=== PATIENT | male | born 1950 | race Caucasian/White ===

== ENCOUNTER 2024-01-09 10:42 | Outpatient (AMB) | payer OTHER, SELFPAY ==
--- NOTE | 2024-01-09 10:45 | A.OFFVIS_ITS ---
Intake Visit Reasons: nocturia Intake Note: New Patient presents for initial visit for nocturia and incomplete bladder emptying Urology Medications: none Blood Thinner: none PVR: 41ml's Truckload Checker Required: No Accompanied by: Self / Same As Patient Allergies No Known Allergies Allergy (Verified 01/09/24 11:34) Medication List - Last Reconciled 01/09/24 by SOFIA Castro atorvastatin 20 mg PO DAILY cyclobenzaprine 10 mg PO TID doxepin 6 mg PO BEDTIME mirabegron ER (Myrbetriq) 25 mg PO DAILY 30 days HPI Comments Details: Destin is a very pleasant 73-year-old male patient of Dr. Kendall. He has a past medical history of hyperlipidemia. He presents to the office today as a new patient for urge incontinence and lower urinary tract symptoms. In discussion with the patient today reports recently moving here from [place]. He reports approximately 1 and half years ago having had a TURP and had been doing well up until approximately 3-6 months ago when he started experiencing urinary urgency, urinary frequency, nocturia, and urge incontinence. He denies hematuria, dysuria, foul smelling urine, changes to urinary stream, flank pain, fever, and or chills. In office urinalysis results reviewed with the patient today. PVR 41 mL. We discussed at length potential causes of lower urinary tract symptoms patient is experiencing. We discussed bladder triggers/irritants as patient does report drinking approximately 3 cups of coffee a day. He discusses moving here from [place] to take care of his 2 grandchildren as his daughter is going to grad school. 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 We discussed possible near future in office cystoscopy and or urodynamics for further assessment evaluation. Will obtain retroperitoneal ultrasound and PSA for further assessment evaluation. He otherwise offers no other issues or concerns at this time. Review of Systems Const All systems reviewed & are unremarkable except as noted in HPI and below Physical Exam Const General: cooperative, healthy appearing, comfortable, no acute distress, well developed, alert and awake Orientation/consciousness: patient oriented x3 Limitations: no limitations HEENT Head: Yes normal to inspection, Yes normocephalic and Yes atraumatic Ears: hearing grossly normal bilaterally Eyes General: appearance normal, both eyes and all related structures Neck Neck: Yes normal visual inspection and Yes trachea midline Chest Chest palpation & inspection: normal inspection of the chest Resp Effort & Inspection: normal respiratory effort and able to speak in complete sentences Cardio Rate: regular rate GI Inspection: Yes normal to inspection General: Yes no CVA tenderness Back/Spine/Pelvis Back: no CVA tenderness Skin General skin exam: no rashes or lesions noted Neuro General: patient oriented x3 Extrem General: Yes normal to inspection Psych Appearance: grossly normal and well kempt Mental Status: mental status grossly normal Speech and movement: Normal speech and movement present and Clear speech present Affect: normal affect Attitude: cooperative Thought process: Normal thought process present Thought content: Normal thought content present Insight: Fair insight present (Psych) Judgement: Fair judgement present (Psych) Office Procedures Post Void Residual Post Residual Void Post Void Residual (PVR): 41 90718-Lmth Void Residual by ultrasound Results AMB Urinalysis, Automated UA Leukoctes 0 Rachael/uL Last Edit by [employer] on 01/09/24 11:05 UA Nitrite Last Edit by Jan Levy on 01/09/24 11:05 UA Urobilinogen 0.2 mg/dL Last Edit by LeviBAASBOXloki Levy on 01/09/24 11:05 UA Protein 0 mg/dL Last Edit by LeviBAASBOXloki Levy on 01/09/24 11:05 UA pH 5.5 Last Edit by LeviBAASBOXloki Levy on 01/09/24 11:05 UA Blood 0 Laci/uL Last Edit by Spotzerloki Levy on 01/09/24 11:05 UA Specific [place] 1.015 Last Edit by LeviBAASBOXloki Levy on 01/09/24 11:05 UA Ketone Last Edit by Spotzerloki Levy on 01/09/24 11:05 UA Bilirubin 0 mg/dL Last Edit by Jan Levy on 01/09/24 11:05 UA Glucose 0 mg/dL Last Edit by LeviBAASBOXloki Levy on 01/09/24 11:05 Results Reviewed Results Reviewed: Laboratory Last Values Urine pH (Auto) 5.5 01/09/24 11:04 Specific [place] (Auto) 1.015 01/09/24 11:04 Urine Protein (Auto) 0 mg/dL 01/09/24 11:04 Glucose (UA)(Auto) 0 mg/dL 01/09/24 11:04 Urine Blood (Auto) 0 Laci/uL 01/09/24 11:04 Urine Bilirubin (Auto) 0 mg/dL 01/09/24 11:04 Urine Urobilinogen (Auto) 0.2 mg/dL 01/09/24 11:04 Leukocyte Esterase (Auto) 0 Rachael/uL 01/09/24 11:04 Assessment & Plan Assessment & Plan (1) Urinary frequency: Code(s): R35.0 - Frequency of micturition Category: Medical (2) Urinary incontinence, urge: Code(s): N39.41 - Urge incontinence Category: Medical Plan In office urinalysis results reviewed with the patient today; as noted above. PVR 41 mL. We discussed at length potential causes of lower urinary tract symptoms patient is experiencing. Discussed bladder triggers/irritants. Will obtain retroperitoneal ultrasound for assessment evaluation. Will obtain PSA for further assessment evaluation. Start Myrbetriq as discussed and prescribed. Follow-up in 1-3 months with imaging and PVR and PSA to be completed prior; or sooner with any issues, concerns, and or questions. Orders: Orders US retroperitoneal comp Today N39.41 - Urge incontinence, R35.0 - Frequency of micturition AMB Urinalysis Automated Today Z13.9 - Encounter for screening, unspecified AMB Post Void Residual by ultrasound Today Z13.9 - Encounter for screening, unspecified Prostate Specific Antigen Today N39.41 - Urge incontinence, R35.0 - Frequency of micturition Medications: New mirabegron ER (Myrbetriq) 25 mg PO DAILY 30 tabs 3RF 30 days N32.81 - Overactive bladder, R35.1 - Nocturia Patient Instructions: The patient had an opportunity to ask questions regarding the treatment plan. All questions were answered. Physical exam, labs, and imaging were discussed and reviewed in detail. As well as risks, benefits, and discussion of treatment choices. No major barriers to understanding were identified. The patient expressed understanding and agreement with the above treatment plan. The patient was made aware they should contact our office by phone for worsening of their current condition, the appearance of new symptoms, or with any questions or concerns. Compliance is encouraged with any medications and follow up testing that is ordered. It is a privilege to be allowed the opportunity to participate in? your urological care.? Again, if you have any questions or concerns If you have any questions or concerns please do not hesitate to contact me. The office is [phone]. This note is constructed using voice recognition software. While every effort has been made to ensure accuracy ship's captain errors may have been included. Yours sincerely, SOFIA Castro Coding Level of Care Code New Pt Level 4 (32730) Diagnoses Urinary frequency R35.0 Urinary incontinence, urge N39.41 CPT Codes Post Residual Void - PVR CPT Code: 63119-Ftoy Void Residual by ultrasound ([id number])
== END 2024-01-09 11:28 | disposition home or self-care (01) ==
PROVIDERS: PCP Internal Medicine; Visit Provider Nurse Practitioner Family
DX: R35.0 Frequency of micturition (principal); N39.41 Urge incontinence; Z13.9 Encounter for screening, unspecified
CPT/HCPCS: 99204

== ENCOUNTER → 2024-01-09 10:42 | Outpatient (BNVA) | payer OTHER, SELFPAY | PROVIDERS: PCP Internal Medicine; Visit Provider Nurse Practitioner Family | DX: N39.41 Urge incontinence (principal); R35.0 Frequency of micturition | CPT/HCPCS: 51798; 81003 ==

== ENCOUNTER 2024-02-29 09:51 | Outpatient (REF) | payer MEDICARE, SELFPAY | END 2024-02-29 09:52 | disposition home or self-care (01) | LOC: HO.US 09:51 | PROVIDERS: PCP Internal Medicine; Visit Provider Nurse Practitioner Family | DX: R35.0 Frequency of micturition (principal); N39.41 Urge incontinence | CPT/HCPCS: 76770 ==

== ENCOUNTER → 2024-05-07 08:30 | Outpatient (BNVA) | payer MEDICARE, SELFPAY | PROVIDERS: PCP Internal Medicine; Visit Provider Nurse Practitioner Family | DX: N39.41 Urge incontinence (principal); R35.0 Frequency of micturition | CPT/HCPCS: 51798; 99212 ==

== ENCOUNTER 2024-05-13 11:58 | Outpatient (REF) | payer MEDICARE, SELFPAY ==
--- NOTE | ~2024-05-13 | XR_ITS ---
CLINICAL HISTORY: LEFT HAND PAIN 3 view left hand Comparison: None Findings: No fractures or dislocations. No significant loss of joint space or osteophytes. No erosions. No radiopaque foreign body. IMPRESSION: 1. No acute findings This document has been electronically signed by: Panda Murphy MD on 05/14/2024 03:00:44
--- NOTE | ~2024-05-13 | XR_ITS ---
CLINICAL HISTORY: COUGH 2 view chest x-ray Comparison: None Findings: No consolidation or effusion. Normal size heart. No acute fracture. IMPRESSION: 1. No acute findings. This document has been electronically signed by: Panda Murphy MD on 05/14/2024 03:01:55
== END 2024-05-13 11:59 | disposition home or self-care (01) ==
LOC: HO.HMGCX 11:58
PROVIDERS: PCP Internal Medicine; Visit Provider Internal Medicine
DX: R05.9 Cough, unspecified (principal); M79.642 Pain in left hand
CPT/HCPCS: 71046; 73130

== ENCOUNTER 2024-06-17 09:53 | Outpatient (REF) | payer MEDICARE, SELFPAY | END 2024-06-17 09:54 | disposition home or self-care (01) | LOC: HO.SH 09:53 | PROVIDERS: Visit Provider Internal Medicine | DX: Z01.118 Encounter for examination of ears and hearing with other abnormal findings (principal); H90.3 Sensorineural hearing loss, bilateral | CPT/HCPCS: 92557; 92567 ==

== ENCOUNTER 2024-08-05 14:31 | Outpatient (REF) | payer MEDICARE, SELFPAY ==
[2024-08-05 18:11] LABS: Prostate Specific Antigen 0.65 ng/mL (<0.05-4.0)
== END 2024-08-05 14:32 | disposition home or self-care (01) ==
LOC: HO.HMGCLDS 14:31
PROVIDERS: PCP Internal Medicine; Visit Provider Nurse Practitioner Family
DX: R35.0 Frequency of micturition (principal); N39.41 Urge incontinence; Z12.5 Encounter for screening for malignant neoplasm of prostate
CPT/HCPCS: 36415; 84153

== ENCOUNTER 2024-09-22 09:43 | Outpatient (AMB) | payer MEDICARE, SELFPAY ==
--- NOTE | 2024-09-22 09:45 | A.OFFVIS_ITS ---
Intake Visit Reasons: 2m/PSA/PVR(set) Intake Note: Patient presents today for follow up on: incontinence, frequency, psa lab results PSA: 0.65 Urology Med: Fesoterodine Antibiotic Allergy:None Blood Thinner: None Todays PVR:39mls Customer Trainer Required: No Accompanied by: Self / Same As Patient Allergies No Known Allergies Allergy (Verified 09/22/24 10:04) Medication List - Last Reconciled 09/22/24 by SOFIA Castro atorvastatin 20 mg PO DAILY doxepin 6 mg PO BEDTIME fesoterodine ER 4 mg PO DAILY 30 days fexofenadine (Jahaira Allergy) PO DAILY HPI Comments Details: Destin is a very pleasant 73-year-old male patient of Dr. Kendall. He has a past medical history of hyperlipidemia. He presents to the office today for follow-up of his urge incontinence and lower urinary tract symptoms. In discussion with the patient today he reports to be doing and feeling well. He discusses how helpful testosterone Alonzo has been in episodes of urinary urgency and frequency he had been experiencing. Previous workup has included a retroperitoneal 02/23 ultrasound noting bilateral kidneys with no hydronephrosis or renal calculi. The bladder is well distended. Pre void bladder volume is approximately 225 mL. Postvoid bladder volume is approximately 10 mL. The prostate volume was measured at 20 mL. PSAs are as follows: PSAs: 08/24 0.7 He has a previous history of a TURP over a year and a half ago. He denies hematuria, dysuria, foul smelling urine, changes to urinary stream, flank pain, fever, and or chills. We discussed at length potential causes of lower urinary tract symptoms patient is experiencing. We discussed bladder triggers/irritants as patient does report drinking approximately 3 cups of coffee a day. He discusses moving here from [place] to take care of his 2 grandchildren as his daughter is going to grad school. 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 He also discusses the upcoming of his granddaughter in October. He has previously trialed Myrbetriq however this has since been discontinued due to increased co-payments. He is enquiring further treatment options of erectile dysfunction however would like to continue with surveillance monitoring at this time. We did discussed potential near future in office cystoscopy or urodynamics if lower urinary tract symptoms arise. In office urinalysis results reviewed with the patient today. PVR 39 mL. He otherwise offers no other issues or concerns at this time. Review of Systems Const All systems reviewed & are unremarkable except as noted in HPI and below Physical Exam Const General: cooperative, healthy appearing, comfortable, no acute distress, well developed, alert and awake Orientation/consciousness: patient oriented x3 Limitations: no limitations HEENT Head: Yes normal to inspection, Yes normocephalic and Yes atraumatic Ears: hearing grossly normal bilaterally Eyes General: appearance normal, both eyes and all related structures Neck Neck: Yes normal visual inspection and Yes trachea midline Chest Chest palpation & inspection: normal inspection of the chest Resp Effort & Inspection: normal respiratory effort and able to speak in complete sentences Cardio Rate: regular rate GI Inspection: Yes normal to inspection General: Yes no CVA tenderness Back/Spine/Pelvis Back: no CVA tenderness Skin General skin exam: no rashes or lesions noted Neuro General: patient oriented x3 Extrem General: Yes normal to inspection Psych Appearance: grossly normal and well kempt Mental Status: mental status grossly normal Speech and movement: Normal speech and movement present and Clear speech present Affect: normal affect Attitude: cooperative Thought process: Normal thought process present Thought content: Normal thought content present Insight: Fair insight present (Psych) Judgement: Fair judgement present (Psych) Office Procedures Post Void Residual Post Residual Void Post Void Residual (PVR): 39 [id number]-Npad Void Residual by ultrasound Results AMB Urinalysis, Automated UA Leukoctes 0 Rachael/uL Last Edit by BEVERLY White on 09/22/24 10:12 UA Nitrite Last Edit by BEVERLY White on 09/22/24 10:12 UA Urobilinogen 0.2 mg/dL Last Edit by BEVERLY White on 09/22/24 10:1 2 UA Protein 25 mg/dL Last Edit by BEVERLY White on 09/22/24 10:12 UA pH 6.0 Last Edit by Jan Levy, [facility] on 09/22/24 10:12 UA Blood 0 Laci/uL Last Edit by Jan Levy, [facility] on 09/22/24 10:12 UA Specific [place] 1.020 Last Edit by Jan Levy, [facility] on 09/22/24 10: 12 UA Ketone Last Edit by Jan Levy, [facility] on 09/22/24 10:12 UA Bilirubin 1 mg/dL Last Edit by Jan Levy, [facility] on 09/22/24 10:12 UA Glucose 0 mg/dL Last Edit by Jan Levy, [facility] on 09/22/24 10:12 Assessment & Plan Assessment & Plan (1) Urinary frequency: Code(s): R35.0 - Frequency of micturition Category: Medical (2) Urinary incontinence, urge: Code(s): N39.41 - Urge incontinence Category: Medical Plan In office urinalysis results reviewed with the patient today; as noted above. PVR 39 mL. Recent PSA results reviewed with the patient today; as noted above. Continue testosterone as discussed and prescribed. We discussed at length potential causes of lower urinary tract symptoms patient was experiencing. We discussed bladder triggers/irritants. We discussed pelvic floor exercises We discussed potential for near future in office urodynamics and or cystoscopy if symptoms arise for further assessment evaluation. Follow-up in 6 months; or sooner with any issues, concerns, and or questions. Orders: Orders AMB Urinalysis Automated Today Z13.9 - Encounter for screening, unspecified AMB Post Void Residual by ultrasound Today R35.0 - Frequency of micturition Patient Instructions: The patient had an opportunity to ask questions regarding the treatment plan. All questions were answered. Physical exam, labs, and imaging were discussed and reviewed in detail. As well as risks, benefits, and discussion of treatment choices. No major barriers to understanding were identified. The patient expressed understanding and agreement with the above treatment plan. The patient was made aware they should contact our office by phone for worsening of their current condition, the appearance of new symptoms, or with any questions or concerns. Compliance is encouraged with any medications and follow up testing that is ordered. It is a privilege to be allowed the opportunity to participate in? your urological care.? Again, if you have any questions or concerns If you have any questions or concerns please do not hesitate to contact me. The office is [phone]. This note is constructed using voice recognition software. While every effort has been made to ensure accuracy edging catcher errors may have been included. Yours sincerely, SOFIA Castro Coding Level of Care Code Est Pt Level 3 (67506) Complex EM visit Add On G2211 Diagnoses Urinary frequency R35.0 Urinary incontinence, urge N39.41 CPT Codes Post Residual Void - PVR CPT Code: 46080-Fbjl Void Residual by ultrasound ([id number])
== END 2024-09-22 10:28 | disposition home or self-care (01) ==
LOC: HO.HUSH 09:44
PROVIDERS: PCP Internal Medicine; Visit Provider Nurse Practitioner Family
DX: R35.0 Frequency of micturition (principal); N39.41 Urge incontinence; Z13.9 Encounter for screening, unspecified
CPT/HCPCS: 99213; G2211

== ENCOUNTER → 2024-09-22 09:43 | Outpatient (BNVA) | payer MEDICARE, SELFPAY | PROVIDERS: PCP Internal Medicine; Visit Provider Nurse Practitioner Family | DX: R35.0 Frequency of micturition (principal); N39.41 Urge incontinence | CPT/HCPCS: 51798; 81003; 99212 ==

== ENCOUNTER 2024-12-02 09:44 | Outpatient (AMB) | payer MEDICARE, SELFPAY ==
--- NOTE | 2024-12-02 09:48 | A.OFFPC_ITS ---
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 Accompanied by: Self / Same As Patient Allergies Penicillins (PCN) Allergy (Mild, Verified 12/02/24 10:13) Itching Medication List - Last Reconciled 12/02/24 by Kentrell Loyd MD atorvastatin 20 mg PO DAILY doxepin 6 mg PO BEDTIME fesoterodine ER 4 mg PO DAILY fexofenadine (Jahaira Allergy) PO DAILY Tobacco use date assessed: 12/02/24 Fall risk assessment: No Falls in past year Last assessed Fall Risk: 12/02/24 Dental Screening Dental Screen Date: 12/02/24 Did you have a dental visit in the last 12 months?: Yes Did you have a dental problem in the last 6 months where you did not have access to dental care?: No Was dental information given to patient?: Patient has dentist [facility] Medical History (Updated 12/02/24 @ 10:15 by Kentrell Loyd MD) Essential hypertension Hyperlipidemia Family History Mother AD (Alzheimer's disease) Father Heart attack Social History Housing: House Alcohol intake: current Alcohol intake frequency: a few times a week Patient Tobacco Use Status: Never used Tobacco service: No Current occupational status: retired Cognitive needs: No Hearing needs: No Vision needs: Yes (reading glasses) Questionnaire PHQ-9 Over the last 2 weeks, how often have you been bothered by any of the following problems? 1. Little interest or pleasure in doing things: not at all 2. Feeling down, depressed, or hopeless: not at all 3. Trouble falling or staying asleep, or sleeping too much: not at all 4. Feeling tired or having little energy: not at all 5. Poor appetite or overeating: not at all 6. Feeling bad about yourself - or that you are a failure or have let yourself or your family down: not at all 7. Trouble concentrating on things, such as reading the newspaper or watching television: not at all 8. Moving or speaking so slowly that other people could have noticed. Or the opposite - being so fidgety or restless that you have been moving around a lot more than usual: not at all 9. Thoughts that you would be better off or of hurting yourself in some way: not at all Total score: 0 Source: Developed by Drs. Sunday Paz, Lora Mccoy, Hill Lazaro and colleagues, with an educational thony from [employer]. Thrive Questionnaire Date Thrive assessed: 12/02/24 I am a: Patient What is your living situation today?: I have a steady place to live Within the past 12 months, did the food you bought not last and you didn't have the money to get more?: Never true Within the past 12 months, did you worry whether your food would run out before you got money to buy more?: Never true Do you have trouble paying for medicines?: No Do you have trouble getting transportation to medical appointments?: No Do you have trouble paying your heating and electricity bill?: No Do you have trouble taking care of your child, family member or friend?: No Do you have trouble with day-to-day activities such as bathing, preparing meals, shopping, managing finances, etc.?: No Are you currently unemployed and looking for a job?: No Are you interested in more education?: No Please select the resources that you would like help with: None THRIVE Score: 0 AUDIT C Alcohol Use Questionnaire (AUDIT-C) 1. How often do you have a drink containing alcohol?: 2-3 times a week 2. How many drinks containing alcohol do you have on a typical day when you are drinking?: 1 or 2 3. How often do you have six or more drinks on one occasion?: Never Total Score: 3 LUIS F-7 AMB Questionnaire LUIS F-7 Date LUIS F - 7 assessed: 12/02/24 Feeling nervous, anxious, or on edge: 0 = Not at all Not being able to stop or control worryin = Not at all Worrying too much about different things: 0 = Not at all Trouble relaxin = Not at all Being so restless that it is hard to sit still: 0 = Not at all Becoming easily annoyed or irritable: 0 = Not at all Feeling afraid as if something awful might happen: 0 = Not at all Total LUIS F-7 score (0-4 normal; 5-9 mild; 10-14 moderate; 15-21 severe): 0 Source: Developed by Drs. Sunday Paz, Lora Mccoy, Hill Lazaro and colleagues, with an educational thony from [employer]. Physical exam (Primary Care) Vital Signs: Last Vital Signs Temp 98.3 F 12/02/24 09:50 Pulse 72 12/02/24 09:50 Resp 16 12/02/24 09:50 BP 185/86 H 12/02/24 09:50 Pulse Ox 96 12/02/24 09:50 Oxygen Delivery Method Room Air 12/02/24 09:50 BMI result Body Mass Index 28.2 Tobacco/Smoking Status: Tobacco use Status Tobacco use date assessed 12/02/24 12/02/24 09:57 Patient Tobacco Use Status Never used Tobacco 12/02/24 09:57 PHQ-9: PHQ-9 Score PHQ-9: Total score 0 12/02/24 09:57 Thrive Assessment: Date of Thrive Assessment Date Thrive assessed 12/02/24 12/02/24 09:57 Coding Level of Care Code New Pt Level 4 (36932) Complex EM visit Add On G2211 Diagnoses Hyperlipidemia E78.5 Essential hypertension I10 Assessment & Plan Assessment & Plan (1) Hyperlipidemia: Code(s): E78.5 - Hyperlipidemia, unspecified Category: Medical Plan: Fasting blood work ordered. Will call with results (2) Essential hypertension: Code(s): I10 - Essential (primary) hypertension Category: Medical Plan: BP is elevated. Pt reluctant to start meds. Advised to return in 4 weeks for BP recheck. Plan History of Present Illness - The patient is a 74-year-old male presenting with a request for a physical examination and to establish care. - Hyperlipidemia: The patient was prescribed atorvastatin approximately 8 to 10 months ago due to slightly elevated cholesterol levels. - He expressed concerns about the medication and inquired about more holistic approaches to managing his cholesterol. - History of colonic polyps: The patient is on a three-year rotation for colonoscopy due to previous findings of polyps, although no malignancy was detected. - He is unsure of the exact timing for his next colonoscopy and requested assistance in scheduling it. - Urinary urgency: The patient underwent a prostate procedure approximately three years ago, which did not fully alleviate his symptoms of urgency and leakage. - A bladder medication prescribed by his urologist has been effective in managing these symptoms. - Hives: The patient experiences itching skin, particularly at night, which has been attributed to hives by dermatologists. - He alternates between Jahaira and Zyrtec for symptom relief, though he is interested in exploring holistic treatments. Social History - The patient is retired from a career in [employer], which he found to be stressful. 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 - The patient denies smoking and reports occasional alcohol consumption, about once or twice a month. Review of Systems - Dermatological: Reports itching skin, particularly at night, attributed to hives. - Genitourinary: Reports urinary urgency and leakage, managed with bladder medication. Physical Exam General: Cooperative and healthy appearing Nutritional Appearance: Well nourished Orientation/consciousness: Patient oriented x3 Limitations: No limitations Head: Normal to inspection General: Appearance normal, both eyes and all related structures Neck: Normal visual inspection Chest: Normal palpation of entire chest wall Respiratory: N ormal respiratory effort Neurology: Patient oriented x3, no neurological deficits noted. Results Plan 1. Hyperlipidemia - Continue atorvastatin therapy, monitor for side effects such as muscle aches and fatigue. - Perform fasting blood work to monitor cholesterol levels and liver enzymes. 2. History Of Colonic Polyps - Schedule a colonoscopy as the patient is on a three-year rotation due to previous polyp findings. - Ensure insurance coverage before the procedure to avoid unexpected costs. 3. Urinary Urgency - Continue current bladder medication as it effectively manages symptoms. 4. Hives - Continue using Jahaira and Zyrtec for symptom relief. - Discussed potential holistic approaches to manage hives, considering dietary and anxiety factors. Discussion Notes During the visit, we discussed the continuation of atorvastatin for hype rlipidemia, emphasizing its benefits despite potential side effects like muscle aches and fatigue. We will conduct fasting blood work to monitor cholesterol levels and liver enzymes. For the history of colonic polyps, a colonoscopy will be scheduled, ensuring insurance coverage to avoid unexpected costs. The patient will continue bladder medication for urinary urgency, which has been effective. For hives, we discussed continuing Jahaira and Zyrtec, and explored holistic approaches considering dietary and anxiety factors. Patient Instructions - Continue taking atorvastatin as prescribed and report any side effects such as muscle aches or fatigue. - Schedule and complete fasting blood work at a convenient time. - Follow up with scheduling a colonoscopy and confirm insurance coverage. - Continue bladder medication as it effectively manages urinary urgency. - Use Jahaira and Zyrtec for hives and consider holistic approaches if interested. Orders: Orders Basic Metabolic Panel Today E78.5 - Hyperlipidemia, unspecified Liver Panel Today E78.5 - Hyperlipidemia, unspecified Complete Blood Count no Diff Today E78.5 - Hyperlipidemia, unspecified Lipid Panel Today E78.5 - Hyperlipidemia, unspecified Thyroid Stimulating Hormone Today E78.5 - Hyperlipidemia, unspecified UA and rflx microscopic Today E78.5 - Hyperlipidemia, unspecified Prostate Specific Antigen Scr Today E78.5 - Hyperlipidemia, unspecified Referrals Gastroenterology Referral Z12.11 - Encounter for screening for malignant neoplasm of colon
[2024-12-02 09:50] VITALS: BP 185/86; PULSE 72; RESP 16; TEMP 36.8; O2SAT 96; BMI 28.2
== END 2024-12-02 10:17 | disposition home or self-care (01) ==
LOC: HO.HMCSH 09:44
PROVIDERS: PCP Internal Medicine; Visit Provider Internal Medicine
DX: E78.5 Hyperlipidemia, unspecified (principal); I10 Essential (primary) hypertension

== ENCOUNTER → 2024-12-02 09:44 | Outpatient (BNVA) | payer MEDICARE, SELFPAY | PROVIDERS: PCP Internal Medicine; Visit Provider Internal Medicine | DX: I10 Essential (primary) hypertension (principal); E78.5 Hyperlipidemia, unspecified; R39.15 Urgency of urination; Z86.0100 Personal history of colon polyps, unspecified | CPT/HCPCS: 96127; 99202 ==

== ENCOUNTER 2024-12-11 13:34 | Outpatient (REF) | payer MEDICARE, SELFPAY ==
[2024-12-11 16:33] LABS: Hematocrit 43.5 % (42.0-52.0); Hemoglobin 14.9 g/dl (14.0-18.0); Mean Corpuscular HGB Conc 34.3 g/dl (31.0-36.0); Mean Corpuscular Hemoglobin 29.3 pg (27.0-33.0); Mean Corpuscular Volume 85.5 fL (80.0-98.0); NRBC Abs Auto 0.000 X10*3/uL (0.0-0.012); NRBC Pct Auto 0.0 /100WBC (0.0-0.2); Platelet Count 236 X10*3/uL (160-400); Red Blood Count 5.09 X10*6/uL (4.60-5.80); White Blood Count 7.8 X10*3/uL (4.8-10.8)
[2024-12-11 16:42] LABS: Alanine Aminotransferase 30 U/L (0-40); Albumin Level 3.9 g/dL (3.5-5.0); Alkaline Phosphatase 67 U/L (39-117); Anion Gap 10 (12-20); Aspartate Amino Transferase 55 U/L (5-37); Blood Urea Nitrogen 19 mg/dL (9-16); Calcium 8.6 mg/dL (8.4-10.2); Carbon Dioxide 25 mmol/L (22-29); Chloride 107 mmol/L (96-108); Cholesterol 141 mg/dL (<200); Estimated Glomerular Filt Rate 51; HDL Cholesterol 40 mg/dL (>40); Potassium 4.3 mmol/L (3.3-5.1); Sodium 138 mmol/L (135-145); Total Protein 6.6 g/dL (6.5-8.0); Triglycerides 224 mg/dL (<150)
[2024-12-11 17:02] LABS: Thyroid Stimulating Hormone 1.41 uIU/mL (0.32-4.0)
[2024-12-11 17:19] LABS: Appearance Urine Clear; Glucose Urine UA Negative (Negative); PH 5.5 (5.0-9.0); Specific Gravity - Urine 1.025 (1.005-1.025)
== END 2024-12-11 13:35 | disposition home or self-care (01) ==
LOC: HO.HMGCLDS 13:34
PROVIDERS: PCP Internal Medicine; Visit Provider Internal Medicine
DX: Z12.5 Encounter for screening for malignant neoplasm of prostate (principal); E78.5 Hyperlipidemia, unspecified
CPT/HCPCS: 36415; 80048; 80061; 80076; 81003; 84153; 84443; 85027

== ENCOUNTER 2025-01-19 09:00 | Outpatient (AMB) | payer MEDICARE, SELFPAY ==
--- NOTE | 2025-01-19 09:02 | A.OFFPC_ITS ---
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 Accompanied by: Self / Same As Patient Allergies Penicillins (PCN) Allergy (Mild, Verified 01/19/25 09:03) Itching Tobacco use date assessed: 01/19/25 Fall risk assessment: No Falls in past year Last assessed Fall Risk: 01/19/25 Dental Screening Dental Screen Date: 01/19/25 Did you have a dental visit in the last 12 months?: Yes Did you have a dental problem in the last 6 months where you did not have access to dental care?: No Was dental information given to patient?: Patient has dentist HPI 1 month follow up HPI Details History of Present Illness - The patient is a 74-year-old male pres enting with a follow-up for blood test results and management of elevated blood pressure. - Hyperlipidemia: Recent blood tests ind icated slightly elevated total cholesterol and triglycerides. - Essential Hypertension: Blood pressure was recorded at 194/70 mmHg, with a history of low blood pressure now showing an increase. - Hypoglycemic episodes: The patient rep orts significant symptoms if not eating within two hours, despite not being diabetic. - Preventative care: A colonoscopy is sc heduled for April, and the patient has received influenza and COVID-19 vaccinations. Social History - Exercise: The patient expresses a fletcher re to lose weight and increase physical activity. Review of Systems - Cardiovascular: Reports elevated blood pressure, denies chest pain or palpitations. - Endocrine: Reports hypoglycemic episod es if not eating within two hours, denies diabetes. Physical Exam General: Cooperative and healthy appearing Nutritional Appearance: Well nourished Orientation/consciousness: Patient oriented x3 Limitations: No limitations Head: Normal to inspection General: Appearance normal, both eyes and all related structures Neck: Normal visual inspection Chest: Normal palpation of entire chest wall Respiratory: N ormal respiratory effort Neurology: Patient oriented x3, but reports feeling sleepy. Blood pressure is markedly elevated at 194/70. Results - Labs: Blood test on December 11Sun slightly elevated total cholesterol and triglycerides. Plan - Start enalapril for hypertension, sai toring for side effects like cough. - Implement lifestyle changes such as sa lt reduction and increased physical activity. - Regularly check blood pressure at home and return for follow-up in four weeks. - Maintain current medication regimen in cluding statin and fesoterodine. Discussion Notes I discussed with the patient the elevated blood pressure readings and the importance of starting enalapril to manage hypertension. We reviewed the potential side effects, including a non-irritating cough, and emphasized the need for daily medication adherence. I advised on lifestyle modifications such as reducing salt intake and increasing exercise. We agreed on regular home blood pressure monitoring and a follow-up visit in four weeks to evaluate the treatment's effectiveness. The patient was informed about the continuation of current medications and the upcoming colonoscopy in April. Patient Instructions - Start taking enalapril daily as prescr ibed to manage blood pressure. - Monitor your blood pressure at home re genielarly and keep a log of the readings. - Reduce salt intake and increase physic al activity to help control blood pressure. - Continue taking your current medicatio ns as directed. - Return for a follow-up appointment in four weeks to reassess your blood pressure. [facility] Medical History Essential hypertension Hyperlipidemia Family History Mother AD (Alzheimer's disease) Father Heart attack Social History Housing: House Alcohol intake: current Alcohol intake frequency: a few times a week Patient Tobacco Use Status: Never used Tobacco service: No Current occupational status: retired Cognitive needs: No Hearing needs: No Vision needs: Yes (reading glasses) Questionnaire PHQ-9 Over the last 2 weeks, how often have you been bothered by any of the following problems? 1. Little interest or pleasure in doing things: not at all 2. Feeling down, depressed, or hopeless: not at all 3. Trouble falling or staying asleep, or sleeping too much: not at all 4. Feeling tired or having little energy: not at all 5. Poor appetite or overeating: not at all 6. Feeling bad about yourself - or that you are a failure or have let yourself or your family down: not at all 7. Trouble concentrating on things, such as reading the newspaper or watching television: not at all 8. Moving or speaking so slowly that other people could have noticed. Or the opposite - being so fidgety or restless that you have been moving around a lot more than usual: not at all 9. Thoughts that you would be better off or of hurting yourself in some way: not at all Total score: 0 Source: Developed by Drs. Sunday Paz, Lora Mccoy, Hill Lazaro and colleagues, with an educational thony from [employer]. Thrive Questionnaire Date Thrive assessed: 01/19/25 I am a: Patient What is your living situation today?: I have a steady place to live Within the past 12 months, did the food you bought not last and you didn't have the money to get more?: Never true Within the past 12 months, did you worry whether your food would run out before you got money to buy more?: Never true Do you have trouble paying for medicines?: No Do you have trouble getting transportation to medical appointments?: No Do you have trouble paying your heating and electricity bill?: No Do you have trouble taking care of your child, family member or friend?: No Do you have trouble with day-to-day activities such as bathing, preparing meals, shopping, managing finances, etc.?: No Are you currently unemployed and looking for a job?: No Are you interested in more education?: No Please select the resources that you would like help with: None THRIVE Score: 0 AUDIT C Alcohol Use Questionnaire (AUDIT-C) 1. How often do you have a drink containing alcohol?: 2-3 times a week 2. How many drinks containing alcohol do you have on a typical day when you are drinking?: 1 or 2 3. How often do you have six or more drinks on one occasion?: Never Total Score: 3 LUIS F-7 AMB Questionnaire LUIS F-7 Date LUIS F - 7 assessed: 01/19/25 Feeling nervous, anxious, or on edge: 0 = Not at all Not being able to stop or control worryin = Not at all Worrying too much about different things: 0 = Not at all Trouble relaxin = Not at all Being so restless that it is hard to sit still: 0 = Not at all Becoming easily annoyed or irritable: 0 = Not at all Feeling afraid as if something awful might happen: 0 = Not at all Total LUIS F-7 score (0-4 normal; 5-9 mild; 10-14 moderate; 15-21 severe): 0 Source: Developed by Drs. Sunday Paz, Lora Mccoy, Hill Lazaro and colleagues, with an educational thony from [employer]. Physical exam (Primary Care) Vital Signs: Last Vital Signs Temp 97.2 F 01/19/25 09:03 Pulse 69 01/19/25 09:03 BP 194/74 H 01/19/25 09:03 Pulse Ox 97 01/19/25 09:03 Oxygen Delivery Method Room Air 01/19/25 09:03 BMI result Body Mass Index 28.4 Tobacco/Smoking Status: Tobacco use Status Tobacco use date assessed 01/19/25 01/19/25 09:06 Patient Tobacco Use Status Never used Tobacco 01/19/25 09:06 PHQ-9: PHQ-9 Score PHQ-9: Total score 0 01/19/25 09:10 Thrive Assessment: Date of Thrive Assessment Date Thrive assessed 01/19/25 01/19/25 09:06 Coding Level of Care Code Est Pt Level 4 (61142) Complex EM visit Add On G2211 Diagnoses Essential hypertension I10 Assessment & Plan Assessment & Plan (1) Essential hypertension: Code(s): I10 - Essential (primary) hypertension Category: Medical Plan: History of Present Illness - The patient is a 74-year-old male presenting with a follow-up for blood test results and management of elevated blood pressure. - Hyperlipidemia: Recent blood tests indicated slightly elevated total cholesterol and triglycerides. - Essential Hypertension: Blood pressure was recorded at 194/70 mmHg, with a history of low blood pressure now showing an increase. - Hypoglycemic episodes: The patient reports significant symptoms if not eating within two hours, despite not being diabetic. - Preventative care: A colonoscopy is scheduled for April, and the patient has received influenza and COVID-19 vaccinations. Social History - Exercise: The patient expresses a desire to lose weight and increase physical activity. Review of Systems - Cardiovascular: Reports elevated blood pressure, denies chest pain or palpitations. - Endocrine: Reports hypoglycemic episodes if not eating within two hours, denies diabetes. Physical Exam General: Cooperative and healthy appearing Nutritional Appearance: Well nourished Orientation/consciousness: Patient oriented x3 Limitations: No limitations Head: Normal to inspection General: Appearance normal, both eyes and all related structures Neck: Normal visual inspection Chest: Normal palpation of entire chest wall Respiratory: N ormal respiratory effort Neurology: Patient oriented x3, but reports feeling sleepy. Blood pressure is markedly elevated at 194/70. Results - Labs: Blood test on December 11 showed slightly elevated total cholesterol and triglycerides. Plan - Start enalapril for hypertension, monitoring for side effects like cough. - Implement lifestyle changes such as salt reduction and increased physical activity. - Regularly check blood pressure at home and return for follow-up in four weeks. - Maintain current medication regimen including statin and fesoterodine. Discussion Notes I discussed with the patient the elevated blood pressure readings and the importance of starting enalapril to manage hypertension. We reviewed the potential side effects, including a non-irritating cough, and emphasized the need for daily medication adherence. I advised on lifestyle modifications such a s reducing salt intake and increasing exercise. We agreed on regular home blood pressure monitoring and a follow-up visit in four weeks to evaluate the treatment's effectiveness. The patient was informed about the continuation of current medications and the upcoming colonoscopy in April. Patient Instructions - Start taking enalapril daily as prescribed to manage blood pressure. - Monitor your blood pressure at home regularly and keep a log of the readings. - Reduce salt intake and increase physical activity to help control blood pressure. - Continue taking your current medications as directed. - Return for a follow-up appointment in four weeks to reassess your blood pressure. Medications: New enalapril maleate 10 mg PO DAILY 90 tabs 1RF
[2025-01-19 09:03] VITALS: BP 194/74; PULSE 69; TEMP 36.2; O2SAT 97; BMI 28.4
== END 2025-01-19 09:48 | disposition home or self-care (01) ==
LOC: HO.HMCSH 09:00
PROVIDERS: PCP Internal Medicine; Visit Provider Internal Medicine
DX: I10 Essential (primary) hypertension (principal)

== ENCOUNTER → 2025-01-19 09:00 | Outpatient (BNVA) | payer MEDICARE, SELFPAY | PROVIDERS: PCP Internal Medicine; Visit Provider Internal Medicine | DX: I10 Essential (primary) hypertension (principal); E78.5 Hyperlipidemia, unspecified; E16.2 Hypoglycemia, unspecified | CPT/HCPCS: 96127; 99212 ==

== ENCOUNTER 2025-02-23 09:00 | Outpatient (AMB) | payer MEDICARE, SELFPAY ==
--- NOTE | 2025-02-23 09:02 | A.OFFPC_ITS ---
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 - Regarding hypertension, the patient wa s started on enalapril after the last visit on January 19, when the blood pressure was noted to be elevated. - A past reading was as high as 190, and a home reading two weeks ago was 140. - The patient reports no side effects fr om the medication. - The patient has a chronic history of l ow blood sugar that has been ongoing for 40 years. - For preventative health, the patient r eports a history of multiple colonoscopies which have always found non-malignant polyps. - The patient's next colonoscopy is sche duled for April. - The patient had blood work done in [facility], which was reportedly normal. Social History Results - Labs: Blood work from December was re ported as okay. - Procedures: History of colonoscopies s howing non-malignant polyps. [facility] Medical History Essential hypertension Hyperlipidemia Family History Mother AD (Alzheimer's disease) Father Heart attack Social History Housing: House Alcohol intake: current Alcohol intake frequency: a few times a week Patient Tobacco Use Status: Never used Tobacco service: No Current occupational status: retired Cognitive needs: No Hearing needs: No Vision needs: Yes (reading glasses) Questionnaire PHQ-9 Over the last 2 weeks, how often have you been bothered by any of the following problems? 1. Little interest or pleasure in doing things: not at all 2. Feeling down, depressed, or hopeless: not at all 3. Trouble falling or staying asleep, or sleeping too much: not at all 4. Feeling tired or having little energy: not at all 5. Poor appetite or overeating: not at all 6. Feeling bad about yourself - or that you are a failure or have let yourself or your family down: not at all 7. Trouble concentrating on things, such as reading the newspaper or watching television: not at all 8. Moving or speaking so slowly that other people could have noticed. Or the opposite - being so fidgety or restless that you have been moving around a lot more than usual: not at all 9. Thoughts that you would be better off or of hurting yourself in some way: not at all Total score: 0 Source: Developed by Drs. Sunday Paz, Lora Mccoy, Hill Lazaro and colleagues, with an educational thony from [employer]. Thrive Questionnaire Date Thrive assessed: 01/19/25 I am a: Patient What is your living situation today?: I have a steady place to live Within the past 12 months, did the food you bought not last and you didn't have the money to get more?: Never true Within the past 12 months, did you worry whether your food would run out before you got money to buy more?: Never true Do you have trouble paying for medicines?: No Do you have trouble getting transportation to medical appointments?: No Do you have trouble paying your heating and electricity bill?: No Do you have trouble taking care of your child, family member or friend?: No Do you have trouble with day-to-day activities such as bathing, preparing meals, shopping, managing finances, etc.?: No Are you currently unemployed and looking for a job?: No Are you interested in more education?: No Please select the resources that you would like help with: None THRIVE Score: 0 AUDIT C Alcohol Use Questionnaire (AUDIT-C) 1. How often do you have a drink containing alcohol?: 2-3 times a week 2. How many drinks containing alcohol do you have on a typical day when you are drinking?: 1 or 2 3. How often do you have six or more drinks on one occasion?: Never Total Score: 3 LUIS F-7 AMB Questionnaire LUIS F-7 Date LUIS F - 7 assessed: 01/19/25 Feeling nervous, anxious, or on edge: 0 = Not at all Not being able to stop or control worryin = Not at all Worrying too much about different things: 0 = Not at all Trouble relaxin = Not at all Being so restless that it is hard to sit still: 0 = Not at all Becoming easily annoyed or irritable: 0 = Not at all Feeling afraid as if something awful might happen: 0 = Not at all Total LUIS F-7 score (0-4 normal; 5-9 mild; 10-14 moderate; 15-21 severe): 0 Source: Developed by Drs. Sunday Paz, Lora Mccoy, Hill Lazaro and colleagues, with an educational thony from [employer]. Review of Systems Narrative Review of Systems - Cardiovascular: Reports elevated blood pressure. - Endocrine: Reports a history of low blood sugar for 40 years. - All other systems reviewed and are negative. Physical exam (Primary Care) Vital Signs: Last Vital Signs Temp 98.0 F 02/23/25 09:03 Pulse 60 02/23/25 09:03 Resp 14 02/23/25 09:03 BP 156/69 H 02/23/25 09:03 Pulse Ox 96 02/23/25 09:03 Oxygen Delivery Method Room Air 02/23/25 09:03 BMI result Body Mass Index 28.6 Tobacco/Smoking Status: Tobacco use Status Tobacco use date assessed 01/19/25 02/23/25 09:04 Patient Tobacco Use Status Never used Tobacco 02/23/25 09:04 PHQ-9: PHQ-9 Score PHQ-9: Total score 0 02/23/25 09:04 Thrive Assessment: Date of Thrive Assessment Date Thrive assessed 01/19/25 02/23/25 09:04 Narrative Physical Exam General: Cooperative and healthy appearing Nutritional Appearance: Well nourished Orientation/consciousness: Patient oriented x3 Limitations: No limitations Head: Normal to inspection General: Appearance normal, both eyes and all related structures Neck: Normal visual inspection Chest: Normal palpation of entire chest wall Respiratory: Normal respiratory effort Neurology: Patient oriented x3 Office Procedures Flu Questionnaire Does the patient have a severe egg allergy?: No Does the patient have severe life threatening allergies?: No Does the patient have a fever or illness today?: No Has the patient ever had Guillain-Wallace Syndrome?: No Has the patient ever had any past reaction to a flu shot?: No Immunizations Fluarix [id number] (PF) 45 mcg (15 mcg x 3)/0.5 mL IM syringe Performing Provider: Kentrell Loyd MD [facility] Documented (not given) by: WILLIAM Morrison on 02/23/25 09:10 Reason Not Given: Received Previously Coding Level of Care Code Complex visit Add On G2211 Diagnoses Essential hypertension I10 Assessment & Plan Assessment & Plan (1) Essential hypertension: Code(s): I10 - Essential (primary) hypertension Category: Medical Plan Plan - Hypertension: The patient will continue taking enalapril once daily. - A recommendation was made to add hydrochlorothiazide for better blood pressure control; however, the patient declined at this time and wishes to defer this until the next appointment. - The benefits of a dual-agent therapy, with a future option of a combination pill, were discussed. - Colon Cancer Screening: The patient will proceed with the scheduled colonoscopy in April. - Follow-up: Will see the patient back in three to six months to re-evaluate blood pressure control. Discussion Notes I discussed with the patient that the current blood pressure reading is 156/69 mmHg. While this is an improvement, I recommended adding a second medication, hydrochlorothiazide, to achieve better control as part of a modern dual-agent treatment strategy. I explained that this combination works well and can eventually be combined into a single pill. The patient expressed a preference to avoid adding more pills at this time and elected to defer starting the new medication until the next visit. We agreed to continue enalapril and re-evaluate at the next follow-up in three to six months. We also confirmed the plan to proceed with the colonoscopy scheduled for April. Patient Instructions - Continue taking your blood pressure medicine, enalapril, once a day. - You can take the enalapril in the morning or at night, whichever you prefer. - We discussed adding a second medication for your blood pressure, but we will wait until your next visit to decide on this. - Please go ahead with your colonoscopy appointment that is scheduled for April. - You do not need any blood work done at this time. Orders: Orders Influenza [id number] Immunization Today Z23 - Encounter for immunization
[2025-02-23 09:03] VITALS: BP 156/69; PULSE 60; RESP 14; TEMP 36.7; O2SAT 96; BMI 28.6
== END 2025-02-23 09:27 | disposition home or self-care (01) ==
LOC: HO.HMCSH 09:00
PROVIDERS: PCP Internal Medicine; Visit Provider Internal Medicine
DX: Z23 Encounter for immunization (principal); I10 Essential (primary) hypertension

== ENCOUNTER → 2025-02-23 09:00 | Outpatient (BNVA) | payer MEDICARE, SELFPAY | PROVIDERS: PCP Internal Medicine; Visit Provider Internal Medicine | DX: I10 Essential (primary) hypertension (principal); Z28.89 Immunization not carried out for other reason | CPT/HCPCS: 90471; 96127; 99212 ==

== ENCOUNTER 2025-03-23 11:57 | Outpatient (AMB) | payer MEDICARE, SELFPAY ==
--- NOTE | 2025-03-23 11:58 | A.OFFVIS_ITS ---
Intake Visit Reasons: 6m f/u Intake Note: Patient presents today for Telehealth follow up on urinary frequency Urology Med: Fesoterodine Antibiotic Allergy:None Blood Thinner: None LAST PVR:39mls Type Copy Examiner Required: No Accompanied by: Self / Same As Patient Allergies Penicillins (PCN) Allergy (Mild, Verified 03/23/25 14:19) Itching Medication List - Last Reconciled 03/23/25 by SOFIA Castro atorvastatin 20 mg PO DAILY doxepin 6 mg PO BEDTIME enalapril maleate 10 mg PO DAILY fesoterodine ER 4 mg PO DAILY fexofenadine (Jahaira Allergy) PO DAILY HPI Comments Details: Destin is a very pleasant 74-year-old male patient of Dr. Loyd. He has a past medical history of hyperlipidemia. He presents to the office today for follow-up of his urge incontinence and lower urinary tract symptoms. In discussion with the patient today he reports to be doing and feeling well. He discusses how helpful fesoterodine has been in episodes of urinary urgency and frequency he had been experiencing however his copays have increased significantly with [employer]. He discusses being open to other urological medications however will be starting a new insurance with [employer] in the next few weeks and would like to reassess co-pay at that time as he discusses how helpful in life changing festerodine has been. Previous workup has included a retroperitoneal 02/23 ultrasound noting bilateral kidneys with no hydronephrosis or renal calculi. The bladder is well distended. Pre void bladder volume is approximately 225 mL. Postvoid bladder volume is approximately 10 mL. The prostate volume was measured at 20 mL. PSAs are as follows: PSAs: 08/24 0.7, 12/25 0.6 He has a previous history of a TURP over a year and a half ago. He denies hematuria, dysuria, foul smelling urine, changes to urinary stream, flank pain, fever, and or chills. We discussed bladder triggers/irritants as patient does report drinking approximately 3 cups of coffee a day. He has previously trialed Myrbetriq however this has since been discontinued due to increased co-payments. We did discuss potential near future in office cystoscopy or urodynamics if lower urinary tract symptoms arise. He otherwise offers no other issues or concerns at this time. [facility] Medical History Essential hypertension Hyperlipidemia Family History Mother AD (Alzheimer's disease) Father Heart attack Social History Housing: House Alcohol intake: current Alcohol intake frequency: a few times a week Patient Tobacco Use Status: Never used Tobacco service: No Current occupational status: retired Cognitive needs: No Hearing needs: No Vision needs: Yes (reading glasses) Review of Systems Const All systems reviewed & are unremarkable except as noted in HPI and below Physical Exam Const General: cooperative Resp Effort & Inspection: able to speak in complete sentences Psych Speech and movement: Clear speech present Attitude: cooperative Thought content: Normal thought content present Insight: Fair insight present (Psych) Judgement: Fair judgement present (Psych) Telehealth Telehealth Telehealth Platform: [employer] Location of provider rendering services: practice address Location of patient: address on file Patient Identification confirmed using: Name, : Yes Telehealth method: voice only Patient verbally consented to treatment: Yes Patient verbally consented to billing insurance company: Yes Patient informed of any privacy concerns related to visit: Yes Minutes spent on Phone/Video with Pt.: 15 Assessment & Plan Assessment & Plan (1) Urinary incontinence, urge: Code(s): N39.41 - Urge incontinence Category: Medical (2) Urinary frequency: Code(s): R35.0 - Frequency of micturition Category: Medical Plan Will continue with fesoterodine as discussed and prescribed. We did discussed further treatment options and risks and benefits of these treatment options however will continue with current therapy per patient request. He currently denies any bothersome urinary issues or concerns. He reports be happy with current voiding parameters. Will continue with surveillance monitoring. Will obtain PSA in 6 months Follow-up in 6 months with PVR and PSA; or sooner with any issues, concerns, and or questions. Orders: Orders Prostate Specific Antigen 6 Months N39.41 - Urge incontinence, R35.0 - Frequency of micturition Patient Instructions: The patient had an opportunity to ask questions regarding the treatment plan. All questions were answered. Physical exam, labs, and imaging were discussed and reviewed in detail. As well as risks, benefits, and discussion of treatment choices. No major barriers to understanding were identified. The patient expressed understanding and agreement with the above treatment plan. The patient was made aware they should contact our office by phone for worsening of their current condition, the appearance of new symptoms, or with any questions or concerns. Compliance is encouraged with any medications and follow up testing that is ordered. It is a privilege to be allowed the opportunity to participate in? your urological care.? Again, if you have any questions or concerns If you have any questions or concerns please do not hesitate to contact me. The office is [phone]. This note is constructed using voice recognition software. While every effort has been made to ensure accuracy vp design errors may have been included. Yours sincerely, SOFIA Castro Coding Level of Care Code Tele Est Pt Level 3 (59713) Add On Problem Visit Only Diagnoses Urinary incontinence, urge N39.41 Urinary frequency R35.0
== END 2025-03-23 13:38 | disposition home or self-care (01) ==
LOC: HO.HUSH 11:57
PROVIDERS: PCP Internal Medicine; Visit Provider Nurse Practitioner Family
DX: N39.41 Urge incontinence (principal); R35.0 Frequency of micturition
CPT/HCPCS: 99213; G2211